=== PATIENT | male | born 1945 | race Caucasian/White ===

== ENCOUNTER 2017-08-01 15:26 | Emergency (ER) | payer OTHER | END 2017-08-01 20:43 | disposition home or self-care (01) | LOC: FTE 15:26 | DX: S52.592A Other fractures of lower end of left radius, initial encounter for closed fracture (principal); I10 Essential (primary) hypertension; W01.0XXA Fall on same level from slipping, tripping and stumbling without subsequent striking against object, initial encounter; Y92.9 Unspecified place or not applicable; Z79.82 Long term (current) use of aspirin | CPT/HCPCS: 29125; 73110-LT; 73130-LT; 99283-25 ==